=== PATIENT | female | born 1990 | race Caucasian/White ===

== ENCOUNTER 2017-07-19 14:10 | Emergency (ER) | payer MEDICAID ==
[~2017-07-19] VITALS: Ht 157.4 cm; Wt 104.3 kg
[~2017-07-19 14:10] MED LIST: AMOXIL500 MG PO; ANAPROX DS550 MG PO; AUGMENTIN 875875 MG PO; BENTYL10 MG PO; CIPROFLOXACIN500 MG PO; DONNATAL1 TAB PO; KEFLEX500 MG PO; MACROBID100 M1 PO; MOTRIN600 MG PO; Motrin,Rufen800 MG PO; NAPROSYN500 MG PO; NKHM; NORCO 325 MG-51 TAB PO; NORFLEX100 MG PO; PERCOCET 325 MG1 TA5 PO; PREDNISONE10 MG PO; TYLENOL W/CODEI1 TA2 PO; ZANTAC150 MG PO; ZOFRAN ODT8 MG PO; ZOFRAN4 MG PO; ZYRTEC10 M2 PO
[2017-07-19] MEDS ORDERED: HYCODAN/HYDROMET5 ML PO (15:26)
[2017-07-19] MEDS ORDERED: PROAIR HFA8.5 GM INH (15:26)
[2017-07-19] MEDS ORDERED: TESSALON PERLE100 M1 PO (15:26)
== END 2017-07-19 15:31 | disposition home or self-care (01) ==
LOC: ED 14:10
DX: J06.9 Acute upper respiratory infection, unspecified (principal); R05 Cough; F17.200 Nicotine dependence, unspecified, uncomplicated; Z98.890 Other specified postprocedural states; Z79.899 Other long term (current) drug therapy

== ENCOUNTER 2017-10-29 16:33 | Emergency (ER) | payer MEDICAID ==
[~2017-10-29] VITALS: Ht 157.4 cm; Wt 108.9 kg
[~2017-10-29 16:33] MED LIST changes: +HYCODAN/HYDROMET5 ML PO; +PROAIR HFA8.5 GM INH; +TESSALON PERLE100 M1 PO
[2017-10-29] MEDS ORDERED: AMOXICILLIN500 M2 PO (17:19)
[2017-10-29] MEDS ORDERED: ZYRTEC10 MG PO (17:19)
== END 2017-10-29 17:32 | disposition home or self-care (01) ==
LOC: ED 16:33
DX: J02.9 Acute pharyngitis, unspecified (principal); H66.92 Otitis media, unspecified, left ear; Z98.890 Other specified postprocedural states; Z79.899 Other long term (current) drug therapy

== ENCOUNTER 2019-06-19 08:21 | Emergency (ER) | payer MEDICAID ==
[~2019-06-19] VITALS: Ht 157.4 cm; Wt 71.2 kg
[~2019-06-19 08:21] MED LIST changes: +AMOXICILLIN500 M2 PO; +ZYRTEC10 MG PO
[2019-06-19 08:57] LABS: BASO % 0.2 % (0.0-1.0); EOS # 0.1 10*3/uL (0.0-0.4); EOS % 1.4 % (1.0-4.0); HEMATOCRIT 39.8 % (37.0-47.0); LYMPH # 1.7 10*3/uL (1.3-4.4); LYMPH % 20.4 % (27.0-41.0); MEAN CELL VOLUME 85.6 fl (81.0-99.0); MEAN CORPUSCULAR HGB CONC 32.7 g/dl (33.0-37.0); MEAN PLATELET VOLUME 9.8 fl (9.6-12.3); NEUT # 5.6 10*3/uL (2.3-7.9); NEUT % 65.8 % (47.0-73.0); PLATELET COUNT AUTOMATED 330 10*3/uL (130-400); RED BLOOD COUNT 4.65 10*6/uL (4.10-5.10); RED CELL DISTRI WIDTH 12.1 % (0-14.5); WHITE BLOOD COUNT 8.6 10*3/uL (4.8-10.8)
[2019-06-19 09:20] LABS: ALKALINE PHOSPHATASE 62 U/L (45-117); BUN 13 mg/dl (7-24); CHLORIDE 108 mmol/L (98-107); CREATININE 0.77 mg/dL (0.55-1.02); LIPASE 62 U/L (73-393); POTASSIUM 3.4 mmol/L (3.5-5.1); SGOT/AST 10 IU/L (3-35); SGPT/ALT 30 U/L (12-78); SODIUM 140 mmol/L (136-145); TOTAL PROTEIN 7.6 gm/dL (6.4-8.2)
[2019-06-19 09:29] LABS: BETA-HCG, QUANT < 1.0 mIU/mL (1-3)
[2019-06-19 09:55] LABS: BILIRUBIN NEGATIVE (NEGATIVE); BLOOD NEGATIVE (NEGATIVE); CLARITY CLEAR (CLEAR); COLOR YELLOW (YELLOW); GLUCOSE NEGATIVE (NEGATIVE); KETONE NEGATIVE (NEGATIVE); LEUKO ESTERASE NEGATIVE (NEGATIVE); NITRITE NEGATIVE (NEGATIVE); PH 7.5 (5.0-9.0); SPECIFIC GRAVITY 1.015 (1.005-1.030); UROBILINOGEN 0.2 E.U./dl (0.2-1.0)
[2019-06-19 10:18] LABS: BACTERIA TRACE; MUCOUS TRACE
[2019-06-19] MEDS ORDERED: ZITHROMAX250 MG PO (12:26)
[2019-06-19] MEDS ORDERED: PHENERGAN25 M3 PO (12:26)
== END 2019-06-19 12:34 | disposition home or self-care (01) ==
LOC: ED 08:21
PROVIDERS: Emergency Medicine
DX: J20.9 Acute bronchitis, unspecified (principal); R42 Dizziness and giddiness; R11.2 Nausea with vomiting, unspecified; R61 Generalized hyperhidrosis; F17.200 Nicotine dependence, unspecified, uncomplicated

== ENCOUNTER 2019-08-13 20:20 | Emergency (ER) | payer MEDICAID ==
[~2019-08-13] VITALS: Ht 157.4 cm; Wt 68.0 kg
[~2019-08-13 20:20] MED LIST changes: +PHENERGAN25 M3 PO; +ZITHROMAX250 MG PO
[2019-08-13] MEDS ORDERED: CLARITIN10 MG PO (21:27)
[2019-08-13] MEDS ORDERED: TESSALON PERLE100 M1 PO (21:27)
== END 2019-08-13 21:44 | disposition home or self-care (01) ==
LOC: ED 20:20
DX: J06.9 Acute upper respiratory infection, unspecified (principal)

== ENCOUNTER 2020-11-28 18:16 | Emergency (ER) | payer MEDICAID ==
[~2020-11-28] VITALS: Ht 157.4 cm; Wt 72.6 kg
[~2020-11-28 18:16] MED LIST changes: +CLARITIN10 MG PO
== END 2020-11-28 21:26 | disposition home or self-care (01) ==
LOC: ED 18:16
DX: S61.412A Laceration without foreign body of left hand, initial encounter (principal); Z79.899 Other long term (current) drug therapy; Z98.890 Other specified postprocedural states; W22.8XXA Striking against or struck by other objects, initial encounter; Y93.89 Activity, other specified; Y92.89 Other specified places as the place of occurrence of the external cause; Y99.8 Other external cause status